=== PATIENT | male | born 1975 | race Caucasian/White ===

== ENCOUNTER 2023-02-06 08:49 | Emergency (ER) | payer SELFPAY ==
[~2023-02-06] VITALS: Ht 170.2 cm; Wt 84.1 kg
[2023-02-06 08:52] VITALS: BP 150/95; TEMP 97.7
[2023-02-06] MEDS ORDERED: PERCOCET 325 MG1 TAB PO (09:55)
[2023-02-06 10:05] VITALS: PULSE 75
== END 2023-02-06 10:05 | disposition home or self-care (01) ==
LOC: COL.ER 08:49
DX: M16.11 Unilateral primary osteoarthritis, right hip (principal); M79.604 Pain in right leg; G89.29 Other chronic pain; F17.200 Nicotine dependence, unspecified, uncomplicated

== ENCOUNTER 2023-04-17 00:26 | Emergency (ER) | payer SELFPAY ==
[~2023-04-17] VITALS: Ht 170.2 cm; Wt 79.5 kg
[~2023-04-17 00:26] MED LIST: PERCOCET 325 MG1 TA2 PO; PERCOCET 325 MG1 TAB PO
[2023-04-17 00:35] VITALS: BP 157/99; TEMP 98.2
[2023-04-17] MEDS ORDERED: AMOXICILLIN 8751 TAB PO (01:04)
[2023-04-17 01:16] VITALS: PULSE 99
[2023-04-17] MEDS ORDERED: PRINZIDE 12.5 M1 TA1 PO (21:13)
== END 2023-04-17 01:16 | disposition home or self-care (01) ==
LOC: COL.ER 00:26
DX: K04.7 Periapical abscess without sinus (principal); R51.9 Headache, unspecified; F17.200 Nicotine dependence, unspecified, uncomplicated

== ENCOUNTER 2023-04-17 20:37 | Emergency (ER) | payer SELFPAY ==
[~2023-04-17] VITALS: Ht 170.2 cm; Wt 79.5 kg
[~2023-04-17 20:37] MED LIST changes: +AMOXICILLIN 8751 TAB PO
[2023-04-17 20:46] VITALS: TEMP 98.3
[2023-04-17] MEDS ORDERED: PRINZIDE 12.5 M1 TA1 PO (21:13)
[2023-04-17 22:26] VITALS: BP 156/74; PULSE 91
== END 2023-04-17 22:26 | disposition home or self-care (01) ==
LOC: COL.ER 20:37
DX: I10 Essential (primary) hypertension (principal); M79.662 Pain in left lower leg; G89.29 Other chronic pain; F17.210 Nicotine dependence, cigarettes, uncomplicated; F17.290 Nicotine dependence, other tobacco product, uncomplicated

== ENCOUNTER 2023-04-28 20:42 | Emergency (ER) | payer OTHER ==
[~2023-04-28] VITALS: Ht 170.2 cm; Wt 78.2 kg
[~2023-04-28 20:42] MED LIST changes: +PRINZIDE 12.5 M1 TA1 PO
[2023-04-28 20:51] VITALS: TEMP 98.3
[2023-04-28] MEDS ORDERED: Gabapentin 300 MG CAP PO ONE (21:30)
[2023-04-28] MEDS ORDERED: oxyCODONE/Acetaminophen 10-325 MG TAB PO ONE (21:30)
[2023-04-28] MEDS ORDERED: NEURONTIN300 MG/CAP PO (21:55)
[2023-04-28] MEDS ORDERED: Home HYDROcodone/Acetaminophen 7.5/325 MG #4 TABS/PACK PO ONE (22:00)
[2023-04-28 22:03] VITALS: BP 136/75; PULSE 80
== END 2023-04-28 22:17 | disposition home or self-care (01) ==
LOC: COL.ER 20:42
DX: I10 Essential (primary) hypertension (principal); G89.29 Other chronic pain

== ENCOUNTER 2023-05-20 10:50 | Emergency (ER) | payer OTHER ==
[~2023-05-20] VITALS: Ht 170.2 cm; Wt 84.1 kg
[~2023-05-20 10:50] MED LIST changes: +NEURONTIN300 MG/CAP PO
[2023-05-20 10:59] VITALS: TEMP 97.6
[2023-05-20] MEDS ORDERED: SEROQUEL 2525 MG/TAB PO (11:06)
[2023-05-20] MEDS ORDERED: ASPIRIN 81M81 MG/TA2 PO (11:07)
[2023-05-20] MEDS ORDERED: COUMADIN 22.5 MG/TAB PO (11:07)
[2023-05-20] MEDS ORDERED: PRINZIDE 12.5 M1 TAB PO (12:45)
[2023-05-20] MEDS ORDERED: oxyCODONE/Acetaminophen 5-325 MG TAB PO ONE (12:45)
[2023-05-20] MEDS ORDERED: TOPROL XL 25MG25 MG PO (12:45)
[2023-05-20 13:13] VITALS: BP 160/94; PULSE 84
== END 2023-05-20 13:26 | disposition home or self-care (01) ==
LOC: COL.ER 10:50
DX: S70.01XA Contusion of right hip, initial encounter (principal); I10 Essential (primary) hypertension; F17.200 Nicotine dependence, unspecified, uncomplicated; Z79.899 Other long term (current) drug therapy; Z79.891 Long term (current) use of opiate analgesic; W01.0XXA Fall on same level from slipping, tripping and stumbling without subsequent striking against object, initial encounter

== ENCOUNTER 2023-06-28 10:05 | Outpatient (RCR) | payer OTHER ==
[~2023-06-28 10:05] MED LIST changes: +ASPIRIN 81M81 MG/TA2 PO; +COUMADIN 22.5 MG/TAB PO; +PRINZIDE 12.5 M1 TAB PO; +SEROQUEL 2525 MG/TAB PO; +TOPROL XL 25MG25 MG PO
== END 2023-07-17 | disposition home or self-care (01) ==
LOC: WSPT
DX: M54.50 Low back pain, unspecified (principal)

== ENCOUNTER 2023-07-01 03:48 | Emergency (ER) | payer OTHER ==
[~2023-07-01] VITALS: Ht 170.2 cm; Wt 91.4 kg
[2023-07-01 03:51] VITALS: TEMP 98.3
[2023-07-01] MEDS ORDERED: cloNIDine 0.1 MG TAB PO ONE (04:15)
[2023-07-01] MEDS ORDERED: LORazepam 1 MG TAB PO ONE (06:00)
[2023-07-01 06:36] VITALS: BP 160/98; PULSE 68
== END 2023-07-01 06:42 | disposition home or self-care (01) ==
LOC: COL.ER 03:48
DX: I10 Essential (primary) hypertension (principal); F17.210 Nicotine dependence, cigarettes, uncomplicated; Z79.899 Other long term (current) drug therapy; Z86.718 Personal history of other venous thrombosis and embolism; Z86.711 Personal history of pulmonary embolism; Z79.01 Long term (current) use of anticoagulants